=== PATIENT | male | born 1980 | race Caucasian/White ===

== ENCOUNTER → 2017-11-02 | Outpatient (CLI) | payer OTHER ==
--- NOTE | 2017-11-02 16:47 | RAD ---
EXAM DESCRIPTION: Barium Swallow: Rad-Fluoroscopy. 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 The patient swallowed barium pill with water. The patient swallowed gas-producing granules, water, and heavy density barium under fluoroscopic visualization. The images were obtained with the patient standing and horizontal. Patient drank medium density barium through a straw in the semi-prone position. 9 fluoroscopic cine loop images. 8 static fluoroscopic images. Total fluoroscopy time was 1.9 minutes. Dose 155 mGy. FINDINGS: There was no significant delay or obstruction to barium pill coursing from the oral cavity to the stomach after water swallowing. No significant abnormality in the oral or pharyngeal phase during swallowing of the contrast. No laryngeal penetration or aspiration. Primary peristaltic wave is unremarkable. No mucosal lesions in the esophagus and no mass effect. No gastroesophageal obstruction. No hiatal hernia; gastroesophageal reflux could not be elicited with standard maneuvers. Stomach was well distended with gas and contrast material. No mass effect or gross mucosal lesions. Most of the duodenum was well visualized. A diverticulum is noted on the inner convexity in the third segment. No mass effect. IMPRESSION: Barium swallow esophagram showing no significant abnormalities of the esophagus. Please see above details. 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 Electronically signed by: Gautam Lehman MD 11/02/2017 4:46 PM CDT
== END ==
LOC: RAD 09:03
PROVIDERS: ATTEND General Practice
DX: R13.10 Dysphagia, unspecified (principal)